=== PATIENT | male | born 2000 | race Caucasian/White ===

== ENCOUNTER 2019-12-13 17:03 | Emergency (ER) | payer OTHER, SELFPAY ==
[2019-12-13] MEDS ORDERED: AMOXicillin 250 MG CAP ONE (17:42)
== END 2019-12-13 17:51 | disposition home or self-care (01) ==
LOC: MADERS 17:03
DX: J02.0 Streptococcal pharyngitis (principal)
CPT/HCPCS: 99282

== ENCOUNTER 2023-02-12 08:24 | Emergency (ER) | payer SELFPAY ==
[2023-02-12] MEDS ORDERED: Lidocaine 1% PF 5 ML VIAL ONE ×2 (09:10→10:10)
[2023-02-12] MEDS ORDERED: Boostrix 0.5 ML (Tdap) VIAL (>/=7 yrs of age) ONE (09:10)
== END 2023-02-12 10:37 | disposition home or self-care (01) ==
LOC: MADERS 08:24
DX: S61.253A Open bite of left middle finger without damage to nail, initial encounter (principal); S61.213A Laceration without foreign body of left middle finger without damage to nail, initial encounter; W55.41XA Bitten by pig, initial encounter
CPT/HCPCS: 12002; 90471; 90715